=== PATIENT | male | born 1935 ===

== ENCOUNTER 2017-12-01 15:26 | Emergency (ER) | payer MEDICARE ==
[2017-12-01 15:52] VITALS: BP 146/71
--- NOTE | 2017-12-01 16:31 | UC ---
General HPI - HPI Summary HPI Summary: 82 YO MALE PRESENTS REQUESTING A TEST FOR LYME DISEASE weeks ago he developed right shoulder pain and decreased ROM pain then migrated to left shoulder and both hips about a week ago he developed severe generalized muscle pains this was followed by marked weakness of shoulder girdle and hips anorexia no wt loss no NICOLE no jaw claudication no new meds no change bowel habits no f/c no URI symptoms no UTI symptoms checks his glucose 4x day - History of Current Complaint Chief Complaint: UCGeneralIllness Stated Complaint: LYME DISEASE CONCERN Time Seen by Provider: 12/01/17 15:45 Hx Obtained From: Patient Onset/Duration: Gradual Onset Timing: Constant Onset Severity: Mild Current Severity: Moderate Pain Intensity: 8 Associated Signs & Symptoms: Positive: Weakness, Other - myalgia/arthralgia - Allergy/Home Medications Allergies/Adverse Reactions: Allergies Allergy/AdvReac Type Severity Reaction Status Date / Time No Known Allergies Allergy Verified 12/01/17 15:42 Home Medications: Home Medications Amiodarone TAB* [Cordarone TAB*] 200 mg PO DAILY 12/01/17 [History Confirmed ] Gabapentin CAP(*) [Neurontin 100 mg CAP(*)] 100 mg PO TID 12/01/17 [History Confirmed 12/01/17] Gemfibrozil TAB* [Lopid TAB*] 600 mg PO BID 12/01/17 [History Confirmed ] Insulin Aspart [Novolog] 100 unit SQ DAILY 12/01/17 [History Confirmed 12/01/17] Insulin GLARGINE(*) [Lantus(*)] 0 units SUBCUT Q12H 12/01/17 [History Confirmed 12/01/17] Meloxicam [Mobic] 7.5 mg PO DAILY 12/01/17 [History Confirmed 12/01/17] Omeprazole CAP* [Prilosec CAP* 20 MG] 20 mg PO DAILY 12/01/17 [History Confirmed 12/01/17] Sulfamethox/Trimethoprim DS* [Bactrim DS 800/160 TAB*] 1 tab PO BID 12/01/17 [ History Confirmed 12/01/17] PMH/Surg Hx/FS Hx/Imm Hx Previously Healthy: Yes Endocrine History: Diabetes Cardiovascular History: Hypertension, Pacemaker/ICD, Congestive Heart Failure - Surgical History Surgical History: Yes Surgery Procedure, Year, and Place: Nasal surgery x2. Hernia. Tonsilectomy. Stent LEFT carotid. LEFT 3rd/4th fingertip amp - Family History Known Family History: Positive: Hypertension, Other - [place] mom and dad - Social History Alcohol Use: None Substance Use Type: None Smoking Status (MU): Never Smoked Tobacco Review of Systems Constitutional: Negative Skin: Negative Eyes: Negative ENT: Negative Respiratory: Negative Cardiovascular: Negative Gastrointestinal: Negative Genitourinary: Negative Motor: Negative Neurovascular: Negative Musculoskeletal: Arthralgia, Myalgia Neurological: Weakness Psychological: Negative Is Patient Immunocompromised?: No All Other Systems Reviewed And Are Negative: Yes Physical Exam Triage Information Reviewed: Yes Appearance: Well-Appearing, No Pain Distress, Well-Nourished Vital Signs: Initial Vital Signs Temp 98.3 F 12/01/17 15:43 Pulse 77 12/01/17 15:43 Resp 17 12/01/17 15:43 BP 146/71 12/01/17 15:43 Pulse Ox 100 12/01/17 15:43 Vital Signs Reviewed: Yes Eyes: Positive: Conjunctiva Clear ENT: Negative: Hearing grossly normal, Nasal congestion, Nasal drainage, Trismus , Hoarse voice Neck: Positive: Supple, Nontender, No Lymphadenopathy Respiratory: Positive: Lungs clear, Normal breath sounds, No respiratory distress, No accessory muscle use Cardiovascular: Positive: RRR, No Murmur Abdomen Description: Positive: Nontender Bowel Sounds: Positive: Present Musculoskeletal: Positive: ROM Intact, No Edema Neurological: Positive: Alert Psychological Exam: Normal Skin Exam: Normal Course/Dx - Differential Dx - Multi-Symptom Provider Diagnoses: weakness/arthralgia/myalgia of uncertain cause. ?PMR Discharge - Sign-Out/Discharge Documenting (check all that apply): Discharge/Admit/Transfer - Discharge Plan Condition: Stable Disposition: HOME Patient Education Materials: Weakness (ED), Musculoskeletal Pain (ED), Arthralgia (ED) Referrals: Mayela DAVIS,Yogesh Dahl [Primary Care Provider] - As Soon As Possible Additional Instructions: You should not take both meloxicam and ibuprofen take one or the other YOU NEED TO FOLLOW UP SOON A POSSIBLE FOR THIS TO ER FOR NEW OR WORSENING SYMPTOMS - Billing Disposition and Condition Condition: STABLE Disposition: HOME
[2017-12-01 19:37] LABS: ABS Basophils 0.1 10^3/ul (0-0.2); ABS Eosinophils 0.1 10^3/ul (0-0.6); ABS Lymphocytes 1.6 10^3/ul (1.0-4.8); ABS Monocytes 0.6 10^3/ul (0-0.8); ABS Neutrophils 3.3 10^3/ul (1.5-7.7); ABS Nucleated RBC 0 10^3/ul; Eosinophil % 2.5 % (0-6); Hematocrit 36 % (42-52); Hemoglobin 11.4 g/dl (14.0-18.0); Lymphocyte % 28.4 % (25-47); Mean Corpuscular HGB Conc 32 g/dl (31-36); Mean Corpuscular Hemoglobin 28 pg (27-31); Mean Corpuscular Volume 86 fL (80-94); Mean Platelet Volume 8.3 um3 (7.4-10.4); Nucleated Red Blood Cells % 0.1; Platelet Count 275 10^3/ul (150-450); Red Blood Count 4.14 10^6/ul (4.0-5.4); Red Cell Distribution Width 16 % (10.5-15); White Blood Count 5.7 10^3/ul (3.5-10.8)
[2017-12-01 19:49] LABS: EGFR Non-African American 63.7 (>60)
== END 2017-12-01 17:00 | disposition home or self-care (01) ==
LOC: UCCORT 15:26
DX: R53.1 Weakness (principal); M25.50 Pain in unspecified joint; M79.1 Myalgia
CPT/HCPCS: 36415; 80053; 82550; 85025; 85652; 86618; 99201; G0463

== ENCOUNTER 2019-06-09 13:14 | Emergency (ER) | payer MEDICARE ==
--- OUTSIDE RECORDS SUMMARY | 2019-06-09 13:25 | XMS REPORT | Continuity of Care Document ---
:1935 External Reference #:[id number] Author Name Ian Koenig MD (transmitted by agent of provider Brittni Shanks) Address [address] [place] [id number] Problems Description No Information Available Social History Type Date Description Comments Sex Unknown Allergies, Adverse Reactions, Alerts Description No Known Drug Allergies Medications Active Medications SIG Qnty Indications Ordering Date Provider Amlodipine Besylate Unknown 10mg Tablets [place] Choice Unknown Comfort Ez Pen [place] [id number] 31G X 5 mm Misc Onetouch Ultra Blue Yogesh Pedro MD Strips Pravastatin Sodium Take One Tablet By Unknown Mouth Every Day 10mg Tablets Gemfibrozil Take One Tablet By Unknown 600mg Mouth Twice A Day 30 Tablets Minutes Before Morning And Evening Meal Meloxicam Take One Tablet By Unknown 7.5mg Mouth Twice A Day Tablets 1St Tier Unifine Use For Injections Unknown Pentips [id number] Four Times A Day 32G Subcutaneously For X 4 mm [facility] [place] [place] Insulin Meal Coverage Basaglar Kwikpen Unknown 100Unit/ML Solution Pen-Inject Amiodarone HCL Take One Tablet By Unknown Mouth Every Day 200mg Tablets Omeprazole Take One Capsule By Unknown 20mg Mouth Every Day Capsules DR Before A Meal Tramadol HCL take once daily prn 30tabs Ian 50mg pain MD [place] Tablets Novolog Flexpen Inject Under The Skin Unknown Per Doctors 100Unit/ML Solution Instructions. Maximum Pen-Inject Daily Dose 50 Units Gabapentin Take One Capsule By Unknown 100mg Mouth Three Times A Capsules Day Immunizations Description No Information Available Vital Signs Date Vital Result Comment 05/04/2019 11:48am Height 64 inches 5'4" Weight 171.00 lb Heart Rate 87 /min BP Systolic 172 mmHg BP Diastolic 68 mmHg Respiratory Rate 20 /min O2 % BldC Oximetry 97 % room air BMI (Body Mass Index) 29.3 kg/m2 Results Description No Information Available Procedures Description No Information Available Medical Devices Description No Information Available Encounters Description No Information Available Assessments Date Code Description Provider 05/04/2019 E11.9 Type 2 diabetes mellitus without Ian Koenig MD complications 05/04/2019 M54.5 Low back pain Ian Koenig MD 05/04/2019 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 Plan of Treatment Future Appointment(s):07/28/2019 9:30 am - Ian Koenig MD at [facility]05/04/2019 - Ian Koenig MDE11.9 Type 2 diabetes mellitus without complicationsNew Labs:Comp Metabolic Panel, Ordered: 05/04/19Hemoglobin A1c (Glyco HGB), Ordered: 05/04/19CBC Auto Diff, Ordered: 05/04/19Urine Microalbumin Random, Ordered: 05/04/19TSH (Thyroid Stim Horm), Ordered: Follow up:Follow up in 3 flwoxuM43.5 Low back painNew Therapy:Physical EnyxpuqH69.10 Atherosclerotic heart disease of [place] coronary artery without angina pectorisNew Labs:Lipid Profile (Trig/Chol/HDL), Ordered: 05/04/19 Functional Status Description No Information Available Mental Status Description No Information Available Referrals Description No Information Available
--- OUTSIDE RECORDS SUMMARY | 2019-06-09 13:25 | XMS REPORT | Continuity of Care Document ---
:1935 External Reference #:[id number] Author Name Isamar Pierson MD Address [address] [place] [id number] Care Team Providers Name Role Phone Ian Koenig MD - Family Care Team Information Program Services Assistant Medicine Problems Active Problems Provider Date Coronary atherosclerosis Onset: 12/15/2014 Hypertensive disorder Onset: 12/15/2014 Diabetes mellitus Onset: 12/15/2014 Coronary arteriosclerosis Jeremiah Pritchard M.D., [facility] Onset: 03/08/2015 Hyperlipidemia Jeremiah Pritchard M.D., [facility] Onset: 03/08/2015 Benign essential hypertension Jeremiah Pritchard M.D., [facility] Onset: 2014 Type 2 diabetes mellitus Jeremiah Pritchard M.D., [facility] Onset: 03/08/2015 Essential hypertension Queenie Alvarez MSN, [employer] Onset: 06/11/2015 Dizziness and giddiness Queenie Alvarez MSN, [employer] Onset: 08/01/2015 Atrial flutter Queenie Alvarez MSN, [employer] Onset: 08/01/2015 Cardiac pacemaker in situ Queenie Alvarez, MSN, [employer] Onset: 12/03/2016 Mixed hyperlipidemia Queenie Alvarez MSN, [employer] Onset: 06/12/2015 Social History Type Date Description Comments Sex Unknown Tobacco Use Start: Unknown End: Quit 40 year 112 day Unknown Smoking Status Reviewed: 06/08/19 Quit 40 year 06/11 day ETOH Use Denies alcohol use Recreational Drug Use Denies Drug Use Tobacco Use Start: Unknown End: Patient is a former Unknown smoker Allergies, Adverse Reactions, Alerts Active Allergies Reaction Severity Comments Date NKDA 11/13/2015 Inactive Allergies NKDA 03/08/2015 Benicar Dizziness 08/01/2015 Medications Active Medications SIG Qnty Indications Ordering Date Provider Amiodarone HCL Take One Tablet 90tabs Jeremiah Pritchard 12/03/2016 200mg By Mouth Every M., M.D., FACC Tablets Day Amlodipine Besylate 1 by mouth every Unknown 5mg day Tablets Pravastatin Sodium 1 by mouth every Unknown 10mg day Tablets Gemfibrozil 1 by mouth twice Unknown 600mg Tablets a day Melatonin one capsule by Unknown 3mg Capsules mouth once at at bedtime Acetaminophen Extra 2 by mouth every Unknown Strength 6 hours three 500mg Tablets times a day Calcium 600 + D 1 po a day Unknown [id number] Tablets Latanoprost 1 drop each eye Unknown 0.005% at night Solution Metoprolol Tartrate 1/2 tab by mouth 30tabs Queenie Alvarez 25mg twice a day Michael, MSN, Tablets [employer] Centrum Silver 1 by mouth every Unknown Tablets day Tramadol HCL Every 6-8 Hours 30tabs Unknown 50mg Tablets as Needed Omeprazole Once Daily Unknown 20mg Tablets DR Metformin HCL ER 1 po bid Unknown 500mg Tablets ER 24HR Lantus Every Evening Unknown 100Unit/ML Solution Novolog Flexpen Actid 15units Unknown 100Unit/ML Solution Pen-Inject Gabapentin 3 Times Daily Unknown 300mg Capsules Aspirin Adult Low Once Daily Unknown Strength 81mg Tablets DR Immunizations Description No Information Available Vital Signs Date Vital Result Comment 06/08/2019 9:05am BP Systolic Sitting Left Arm 161 mmHg BP Diastolic Sitting Left Arm 68 mmHg Body Temperature 98.3 F Heart Rate 83 /min [place] body weight in kilograms 67 kg O2 % BldC Oximetry 98 % 12/03/2016 11:56am BP Systolic Sitting Left Arm 154 mmHg BP Diastolic Sitting Left Arm 84 mmHg Heart Rate 86 /min Respiratory Rate 18 /min Height 67 inches 5'7" Weight 169.00 lb BMI (Body Mass Index) 26.5 kg/m2 BSA (Body Surface Area) 1.88 m2 Results Test Acquired Date Facility Test Result H/L Range Note Xray 06/08/2019 [facility] RMP, Ankle, RT, < pending> [address] [facility] [address], [place] [address] (3 View) [phone] Procedures Date Code Description Status 06/08/2019 [address]2511 Radiology, Ankle Complete Completed Medical Devices Description No Information Available Encounters Description No Information Available Assessments Date Code Description Provider 06/08/2019 M25.571 Pain in right ankle and joints of right Isamar Pierson MD foot 06/08/2019 S82.61xD Displaced fracture of lateral malleolus of Isamar Pierson MD right fibula, subsequent encounter for closed fracture with routine healing 04/25/2019 R42 Dizziness and giddiness Kayla Ryan PA 04/25/2019 Z95.0 Presence of cardiac pacemaker Kayla Ryan PA 04/25/2019 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 04/25/2019 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
--- OUTSIDE RECORDS SUMMARY | 2019-06-09 13:25 | XMS REPORT | Continuity of Care Document ---
:1935 External Reference #:[id number] Author Name Ian Koenig MD Address [address] [place] [address] Care Team Providers Name Role Phone Ian Koenig MD - Family Care Team Information Talend Etl Developer Medicine Problems Description No Information Available Social History Type Date Description Comments Sex Unknown Allergies, Adverse Reactions, Alerts Description No Known Drug Allergies Medications Active Medications SIG Qnty Indications Ordering Date Provider Leg Cramps [place] 2 as needed. Ian 05/11/2019 Tablets MD [place] Biofreeze twice a day to sore Ian 05/11/2019 4% Gel joints or muscles MD [facility] Ibuprofen 2 tablets twice a day Ian 05/04/2019 200mg Koenig Tablets Acetaminophen Extra 2 tabs by mouth twice 120tabs Ian 05/04/2019 Strength a day as needed for Koenig, 500mg pain or fever Tablets Sleep Aid 1 at hs for sleep. Ian 05/04/2019 (Diphenhydramine) MD [place] 25mg Tablets Gabapentin Take One Capsule By Unknown 100mg Mouth Three Times A Capsules Day Novolog Flexpen Inject Under The Skin Unknown Per Doctors 100Unit/ML Solution Instructions. Maximum Pen-Inject Daily Dose 50 Units Tramadol HCL take once daily prn 30tabs Ian 50mg pain Juliette Koenig MD Omeprazole Take One Capsule By Unknown 20mg Mouth Every Day Capsules DR Before A Meal Amiodarone HCL Take One Tablet By Unknown 200mg Mouth Every Day Tablets Basaglar Kwikpen Unknown 100Unit/ML Solution Pen-Inject 1St Tier Unifine Use For Injections Unknown Pentips [id number] Four Times A Day 32G X Subcutaneously For 4 mm Misc Insulin Meal Coverage Meloxicam Take One Tablet By Unknown 7.5mg Mouth Twice A Day Tablets Gemfibrozil Take One Tablet By Unknown 600mg Mouth Twice A Day 30 Tablets Minutes Before Morning And Evening Meal Pravastatin Sodium Take One Tablet By Unknown Mouth Every Day 10mg Tablets OnetoYogesh Geiger, Strips [place] Choice Unknown Comfort Ez Pen [place] [id number] 31G X 5 mm Misc Amlodipine Besylate Unknown 10mg Tablets Immunizations Description No Information Available Vital Signs [...] Medical Devices Description No Information Available Encounters Type Date Location Provider Dx Diagnosis Office Visit 05/04/2019 [facility] Ian E11.9 Type 2 diabetes 11:30a MD [place] mellitus without complications M54.5 Low back pain I25.10 Athscl heart disease of [place] coronary artery w/o ang pctrs Assessments Date Code Description Provider 05/04/2019 E11.9 Type 2 diabetes mellitus without Ian Koenig MD complications 05/04/2019 M54.5 Low back pain Ian Koenig MD 05/04/2019 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 Plan of Treatment Future Appointment(s):07/28/2019 9:30 am - Ian Koenig MD at [facility]05/04/2019 - Ian Koenig MDE11.9 Type 2 diabetes mellitus without complicationsNew Labs:Comp Metabolic Panel, Ordered: 05/04/19Hemoglobin A1c (Glyco HGB), Ordered: 05/04/19CBC Auto Diff, Ordered: 05/04/19Urine Microalbumin Random, Ordered: 05/04/19TSH (Thyroid Stim Horm), Ordered: Follow up:Follow up in 3 dkyisiT17.5 Low back painNew Therapy:Physical XscibqzP07.10 Atherosclerotic heart disease of [place] coronary artery without angina pectorisNew Labs:Lipid Profile (Trig/Chol/HDL), Ordered: 05/04/19AllNew Medication:Ibuprofen 200 mg - 2 tablets twice a dayAcetaminophen Extra Strength 500 mg - 2 tabs by mouth twice a day as needed for pain or feverSleep Aid ( Diphenhydramine) 25 mg - 1 at hs for sleep. Functional Status Description No Information Available Mental Status Description No Information Available Referrals Description No Information Available
--- OUTSIDE RECORDS SUMMARY | 2019-06-09 13:25 | XMS REPORT | Continuity of Care Document ---
:1935 External Reference #:[id number] Author Name Ian Koenig MD Address [address] [place] [address] Care Team Providers Name Role Phone Ian Koenig MD - Family Care Team Information Mica Inspector Medicine Problems Description No Information Available Social [...] Tier Unifine Use For Injections Unknown Pentips [id number] Four Times A Day 32G X Subcutaneously For 4 mm Misc Insulin Meal Coverage Meloxicam Take One Tablet By Unknown 7.5mg Mouth Twice A Day Tablets Gemfibrozil Take One Tablet By Unknown 600mg Mouth Twice A Day 30 Tablets Minutes Before Morning And Evening Meal Pravastatin Sodium Take One Tablet By Unknown Mouth Every Day 10mg Tablets OnetoYogesh Geiger, Strips [place] Choice Unknown Comfort Ez Pen [place] [id number] 31G X 5 mm Misc Amlodipine Besylate [...] Location Provider Dx Diagnosis Office Visit 05/04/2019 [facility] [address] [facility] Ian E11.9 Type 2 diabetes 11:30a MD [place] mellitus without complications M54.5 Low back pain I25.10 Athscl heart disease of [place] coronary artery w/o ang pctrs Assessments Date Code Description Provider 05/04/2019 E11.9 Type 2 diabetes mellitus without Ian Koenig MD complications 05/04/2019 M54.5 Low back pain Ian Koenig MD 05/04/2019 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 Plan of Treatment Future Appointment(s):07/28/2019 9:30 am - Ian Koenig MD at [facility] [address] [facility]05/04/2019 - Ian Koenig MDE11.9 Type 2 diabetes mellitus without complicationsNew Labs:Comp Metabolic Panel, Ordered: 05/04/19Hemoglobin A1c (Glyco HGB), Ordered: 05/04/19CBC Auto Diff, Ordered: 05/04/19Urine Microalbumin Random, Ordered: 05/04/19TSH (Thyroid Stim Horm), Ordered: Follow up:Follow up in 3 nhvjcsL04.5 Low back painNew Therapy:Physical TejxeucK03.10 Atherosclerotic heart disease of [place] coronary artery without angina pectorisNew Labs:Lipid [...]
[2019-06-09 13:36] VITALS: BP 124/38
--- NOTE | 2019-06-09 14:12 | UC ---
Head Injury HPI - HPI Summary HPI Summary: 84-year-old male comes in with chief complaint of head injury. Last evening he reports he got up to go to the bathroom and felt dizzy and fell backwards striking the back of his head on a piece of furniture. Patient reports he has a chronic issue with dizziness. He gets up too fast he always gets it's been going on for years. Believes is on a blood thinner but is not sure which one it is. By checking his med list the patient is on aspirin 81 mg daily. I do not see any other blood thinners. Patient does have a history of a cerebral hemorrhage years ago. Denies any headache weakness or numbness. Denies any loss of consciousness change in vision or nausea vomiting. Denies any neck pain any other pain. Patient did have bleeding from the area which was stopped with direct pressure. Patient reports he did call the ambulance when it occurred and they cleaned his wound and they recommended in the wound cared for during the daytime. I discussed getting a head CT and the patient declined. The patient's son is also here with the patient. - History Of Current Complaint Chief Complaint: UCHeadInjury Stated Complaint: HEAD INJURY Time Seen by Provider: 06/09/19 13:45 Pain Intensity: 1 - Allergies/Home Medications Allergies/Adverse Reactions: Allergies Allergy/AdvReac Type Severity Reaction Status Date / Time No Known Allergies Allergy Verified 06/09/19 13:31 Home Medications: Home Medications Aspirin EC TAB* [Ecotrin EC Low Dose 81 MG*] 81 mg PO DAILY 06/09/19 [History Confirmed 06/09/19] PMH/Surg Hx/FS Hx/Imm Hx Previously Healthy: Yes - HX CEREBRAL HEMORRHAGE Endocrine History: Diabetes Cardiovascular History: Hypertension GI/ History: Gastroesophageal Reflux - Surgical History Surgical History: Yes Surgery Procedure, Year, and Place: Nasal surgery x2. Hernia. Tonsilectomy. Stent LEFT carotid. LEFT 3rd/4th fingertip amp - Family History Known Family History: Positive: Hypertension, Other - [place] mom and dad - Social History Alcohol Use: None Substance Use Type: None Smoking Status (MU): Never Smoked Tobacco Review of Systems All Other Systems Reviewed And Are Negative: Yes Constitutional: Positive: Other - SEE HPI Skin: Positive: Other - SEE HPI Eyes: Positive: Negative ENT: Positive: Negative Respiratory: Positive: Negative Cardiovascular: Positive: Negative Gastrointestinal: Positive: Negative Motor: Positive: Other - SEE HPI Neurovascular: Positive: Negative Musculoskeletal: Positive: Other: - Right ankle is in a cam walking boot. Patient has had a recent right ankle fracture. Neurological: Positive: Negative Psychological: Positive: Negative Is Patient Immunocompromised?: No Physical Exam Triage Information Reviewed: Yes Appearance: Well-Appearing, No Pain Distress, Well-Nourished Vital Signs: Initial Vital Signs Temp 97.9 F 06/09/19 13:31 Pulse 78 06/09/19 13:31 Resp 18 06/09/19 13:31 BP 124/38 06/09/19 13:31 Pulse Ox 98 06/09/19 13:31 Vital Signs Reviewed: Yes Eye Exam: Normal Eyes: Positive: Conjunctiva Clear, Other: - PERRLA EOMI no photophobia. ENT: Positive: TMs normal - No hemotympanum, Other - Patient is a 2.5 mm contusion on his occiput. There is a 2 cm partial thickness laceration that is not bleeding. No suturable laceration. No crepitus. Neck: Positive: Supple, Nontender - Midline of the neck is nontender to palpation Respiratory: Positive: Lungs clear, Normal breath sounds, No respiratory distress Cardiovascular: Positive: RRR Musculoskeletal: Positive: Other: - Patient's right foot and ankle is in a cam boot. Neurological: Positive: Alert Psychological: Positive: Age Appropriate Behavior Skin: Positive: Other - On the occiput there is a 2.5 cm contusion area. There is a 2 cm partial-thickness laceration but the edges are well approximated is not bleeding. Head Injury Course/Dx - Course Course Of Treatment: Patient declined head CT. His son was in the room during the conversation. It appears the patient's only on aspirin for a blood thinner. He has no headache. He has chronic generalized weakness but he reports no new weakness or numbness or change in vision since the fall. Wound was cleaned and dressed with antibiotic ointment placed by nursing. The occipital laceration is partial thickness it was closed without any acute bleeding and no need for suturing at this time. Patient will follow-up his primary care doctor get reevaluated sooner if worse or any questions or concerns. - Differential Dx/Diagnosis Provider Diagnosis: Head injury, Contusion of scalp, Laceration of occipital region of scalp Discharge ED - Sign-Out/Discharge Documenting (check all that apply): Patient Departure All imaging exams completed and their final reports reviewed: No Studies - Discharge Plan Condition: Stable Disposition: HOME Patient Education Materials: Head Injury (ED), Scalp Contusion in Adults (ED), Laceration Without Closure (ED) Referrals: Mayela DAVIS,Yogesh Dahl [Primary Care Provider] - Additional Instructions: FOLLOW UP WITH YOUR DOCTOR. GET REEVALUATED SOONER IF NOT IMPROVING OR GO TO THE EMERGENCY DEPARTMENT IF YOUR CONDITION WORSENS; HEADACHE, WEAKNESS, NUMBNESS, UNEXPLAINED VOMITING, DIFFICULTLY WITH VISION OR SPEECH OR ANY QUESTIONS OR CONCERNS. - Billing Disposition and Condition Condition: STABLE Disposition: Home
== END 2019-06-09 14:44 | disposition home or self-care (01) ==
LOC: UCCORT 13:14
DX: S01.01XA Laceration without foreign body of scalp, initial encounter (principal); R42 Dizziness and giddiness; E11.9 Type 2 diabetes mellitus without complications; S82.891D Other fracture of right lower leg, subsequent encounter for closed fracture with routine healing; I10 Essential (primary) hypertension; Z79.82 Long term (current) use of aspirin; Z86.69 Personal history of other diseases of the nervous system and sense organs; W22.03XA Walked into furniture, initial encounter; X58.XXXD Exposure to other specified factors, subsequent encounter; Y92.9 Unspecified place or not applicable
CPT/HCPCS: 99212; G0463